=== PATIENT | female | born 1980 ===

== ENCOUNTER 2018-12-01 05:20 | Day surgery (SDC) | payer OTHER ==
[~2018-12-01 05:20] MED LIST: AMBIEN10 MG PO; ATIVAN2 M1 PO; NEURONTIN800 MG PO; PEPCID40 MG PO; TOPROL XL25 M1 PO; TRAMADOL HCL50 MG PO
[2018-12-01] MEDS ORDERED: PERCOCET 5-3251 EACH PO (09:01)
== END 2018-12-01 11:05 | disposition home or self-care (01) ==
LOC: CIR.AMB 05:20
DX: E04.2 Nontoxic multinodular goiter (principal)